=== PATIENT | female | born 1995 | race African-American/Black ===

== ENCOUNTER 2020-09-03 01:37 | Emergency (ER) | payer BC ==
[2020-09-03 01:47] VITALS: RESP 18
[2020-09-03] MEDS: FAMOTIDINE 20 MG/2 ML VIAL IV STA (02:00)
--- NOTE | 2020-09-03 02:05 | ED ---
General Adult HPI - General Chief complaint: Allergic Reaction Stated complaint: Allergic reaction Time Seen by Provider: 09/03/20 01:39 Source: patient, EMS Mode of arrival: EMS Limitations: no limitations - History of Present Illness Initial comments: 25 year-old female patient presents to the emergency department for evaluation of allergic reaction. States tonight she developed hives over her body. She then started to have swelling in her lips and throat. States she was having a hard time breathing so she took benadryl. States symptoms seemed to worsen so she took the epi pen and called EMS. They administered additional 50mg benadryl and 125mg Solu-Medrol. Patient states that she has been dealing with hives on and off since January of 2020. States that she has been evaluated by her physician and an cupboard builder and was told she had environmental allergies only. She does take a daily claritin and benadryl as needed when the hives flare up. Patient states that in the last month she did have COVID. She also had a similar allergic reaction 3 weeks ago and was put on a short course of steroids and pepcid. She was also given epi pen prescription. Patient states that her physician recently [place] labs for autoimmune disorders. Patient denies any recent fever, chills, cough, abdominal pain, nausea, vomiting, diarrhea, constipation, back pain, num bness, tingling, dizziness, weakness, hematuria, dysuria, urinary urgency, urinary frequency, headache, visual changes, or any other complaints. - Related Data Previous Rx's Medication Instructions Recorded Famotidine [Pepcid] 20 mg PO HS #30 tablet 09/03/20 predniSONE 50 mg PO DAILY #5 tablet 09/03/20 Allergies Allergy/AdvReac Type Severity Reaction Status Date / Time No Known Allergies Allergy Verified 09/03/20 01:47 Review of Systems ROS Statement: Those systems with pertinent positive or pertinent negative responses have been documented in the HPI. ROS Other: All systems not noted in ROS Statement are negative. Past Medical History Past Medical History: No Reported History History of Any Multi-Drug Resistant Organisms: None Reported Past Surgical History: Adenoidectomy, Tonsillectomy Past Psychological History: Anxiety Smoking Status: Never smoker Past Alcohol Use History: Occasional Past Drug Use History: Marijuana General Exam Limitations: no limitations General appearance: alert, in no apparent distress, other (Physical well- developed, well-nourished adult female patient in no acute distress. Vital signs upon presentation temperature 99.1F, pulse 143, respirations 18, blood pressure 142/108, pulse ox 99% on room air) Eye exam: Present: normal appearance, PERRL, EOMI. Absent: scleral icterus, conjunctival injection, periorbital swelling ENT exam: Present: normal oropharynx, mucous membranes moist, other (Upper and lower lip swelling.). Absent: normal exam Respiratory exam: Present: normal lung sounds bilaterally. Absent: respiratory distress, wheezes, rales, rhonchi, stridor Cardiovascular Exam: Present: regular rate, normal rhythm, normal heart sounds. Absent: systolic murmur, diastolic murmur, rubs, gallop, clicks GI/Abdominal exam: Present: soft, normal bowel sounds. Absent: distended, tenderness, guarding, rebound, rigid Neurological exam: Present: alert, oriented X3, CN II-XII intact Psychiatric exam: Present: normal affect, normal mood Skin exam: Present: warm, rash (urticarial rash noted to the bilateral arms. Erythema. No vesicular lesions. ) Course Vital Signs 09/03/20 09/03/20 09/03/20 01:38 01:48 02:00 Temperature 99.1 F Pulse Rate 143 H 108 H Respiratory 18 18 18 Rate Blood Pressure 142/108 118/68 O2 Sat by Pulse 99 96 Oximetry Medical Decision Making - Medical Decision Making 25-year-old female patient presents the emergency department today for evaluation of ALLERGIC reaction. Patient developed generalized hives, lip swelling, shortness of breath and did take her EpiPen at home. Called EMS and was transported here. She did have 125 mg of Cipro Medrol from EMS as well as an additional 50 mg of Benadryl. Upon arrival patient did report improvement of symptoms but still exhibited some lip swelling. We did give a dose of Pepcid here. She is monitored for for a period of 3 hours and remained in stable condition. Upon re-evaluation she is resting comfortably in bed. She does have a history of chronic hives. She is being evaluated by her PCP for this. She will be given a course of steroids and pepcid. She is instructed to follow-up with her primary care physician for recheck as soon as possible. She does have EpiPen's on hand at home. Return parameters were discussed in detail. She verbalizes understanding and agrees with this plan. Disposition Clinical Impression: Allergic reaction Disposition: HOME SELF-CARE Condition: Good Instructions (If sedation given, give patient instructions): General Allergic Reaction (ED) Additional Instructions: Take medications as directed. Follow up with your primary care physician for recheck in 1-2 days. Return to the emergency department for any new, worsening, or concerning symptoms. Prescriptions: Famotidine [Pepcid] 20 mg PO HS #30 tablet predniSONE 50 mg PO DAILY #5 tablet Is patient prescribed a controlled substance at d/c from ED?: No Referrals: Brina Cobian MD [Primary Care Provider] - 1-2 days Time of Disposition: 03:08
[2020-09-03 03:39] VITALS: BP 120/72; PULSE 104; TEMP 98.2
== END 2020-09-03 03:39 | disposition home or self-care (01) ==
LOC: EC 01:37
DX: M79.89 Other specified soft tissue disorders (principal); R06.02 Shortness of breath; L50.9 Urticaria, unspecified; T44.5X5A Adverse effect of predominantly beta-adrenoreceptor agonists, initial encounter
CPT/HCPCS: 99285

== ENCOUNTER → 2020-09-19 | Outpatient (CLI) | payer BC ==
--- NOTE | 2020-09-19 13:38 | XR ---
Sinus HISTORY: Chronic pansinusitis 4 views of the sinuses Paranasal sinuses are well aerated. No air-fluid levels. Orbits are intact. Bone mineralization is ma intained. IMPRESSION: Correlate for point tenderness to assess for sinusitis, CT sinus may be of increased sens itivity and specificity.
== END | disposition home or self-care (01) ==
LOC: RADXRMAIN 12:25
PROVIDERS: ATTEND Allergy & Immunology
DX: J32.4 Chronic pansinusitis (principal)
CPT/HCPCS: 70220